=== PATIENT | male | born 1960 | race Caucasian/White ===

== ENCOUNTER 2020-10-16 17:40 | Observation (INO) | payer OTHER ==
[~2020-10-16] VITALS: Ht 175.3 cm; Wt 64.8 kg
[2020-10-16] MEDS ORDERED: KETOROLAC 60 MG/2 ML VIAL. IM ONE (18:45)
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
[2020-10-16] MEDS ORDERED: fentaNYL PF VIAL 100 MCG/2 ML VIAL IV PRN (22:30)
[2020-10-16] MEDS ORDERED: ONDANSETRON PF 4 MG/2 ML VIAL. IV PRN (22:30)
[2020-10-17 02:45] VITALS: BP 135/80
[2020-10-17] MEDS ORDERED: HYDR-2759 PO (04:08)
[2020-10-17] MEDS ORDERED: MELO7.5T29 PO (04:08)
[2020-10-17 05:00] VITALS: BP 125/88
[2020-10-17 07:00] VITALS: BP 155/92
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
--- NOTE | 2020-10-17 10:38 | DISCH ---
DISCHARGE INSTRUCTIONS Condition on Discharge Condition on Discharge: Stable Activity After Discharge Activity Instructions for Disc: No restrictions, Activity as tolerated Driving Instructions after Dis: Do not drive today Diet after Discharge Diet after Discharge: Cardiac Checks after Discharge DC Comment: CBC, CMP within 1 week Follow-Up Follow up with: PCP withinm 2 weeks of discharge Follow Up With: Neurosurgery if needed MANDO JUAREZ MD Oct 17, 2020 10:38
[2020-10-17 10:43] VITALS: BP 158/84
[2020-10-17] MEDS ORDERED: HYDROcodone/APAP 7.5/325MG 1 TAB TABLET PO PRN (11:00)
--- NOTE | 2020-10-17 12:16 | NUR ---
SS following for discharge planning. SS reviewed pt chart and discussed with pt RN. Pt is from home and is currently on room air. Discharge order on the chart for home with self care.
[2020-10-17 13:48] LABS: BASO # 0.1 x10^3/uL (0.0-0.2); BASO % 1 % (0-3); EOS # 0.4 x10^3/uL (0.0-0.7); EOS % 6 % (0-3); HEMATOCRIT 48.3 % (39.0-53.0); HEMOGLOBIN 16.3 g/dL (13.0-17.5); LYMPH # 0.9 x10^3/uL (1.0-4.8); LYMPH % 13 % (24-48); MEAN CORPUSCULAR HEMOGLOBIN 31 pg (25-35); MEAN CORPUSCULAR HGB CONC 34 g/dL (31-37); MEAN CORPUSCULAR VOLUME 92 fL (79-100); MONO # 0.8 x10^3/uL (0.0-1.1); MONO % 12 % (0-9); NEUT # 4.8 x10^3/uL (1.8-7.7); NEUT % 69 % (31-73); PLATELET COUNT 217 x10^3/uL (140-400); RED BLOOD COUNT 5.22 x10^6/uL (4.30-5.70); RED CELL DISTRIBUTION WIDTH 14.6 % (11.5-14.5); WHITE BLOOD COUNT 6.9 x10^3/uL (4.0-11.0)
--- NOTE | 2020-10-17 14:00 | NUR ---
Discharge Note: HAWK RODRÍGUEZ Discharge instructions and discharge home medications reviewed with Patient and a copy given. All questions have been answered and understanding verbalized. Patient instructed to follow up with Dr. Recinos and Primary Doctor within 2 weeks. All belongings taken with patient upon discharge. Patient instructed not to drive until follow scan with Neurosurgery, patient refusing. Education provided. The following instructions and handouts were given: Subarachnoid hemorrhage Discontinued lines and drains: Peripheral IV intact. Patient discharged to Home or Self Care with Self via Wheelchair
[2020-10-17 14:11] LABS: ALBUMIN 3.8 g/dL (3.4-5.0); ALBUMIN/GLOBULIN RATIO 1.2 (1.0-1.7); CALCIUM 9.2 mg/dL (8.5-10.1); CREATININE 1.1 mg/dL (0.7-1.3); GFR 68.1; TOTAL BILIRUBIN 1.2 mg/dL (0.2-1.0); TOTAL PROTEIN 6.9 g/dL (6.4-8.2)
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
== END 2020-10-17 14:00 | disposition home or self-care (01) ==
LOC: ER 17:40 → ED HOLD 21:30 → CVICU 10-17 02:15
PROVIDERS: ADMIT Internal Medicine; ATTEND Internal Medicine
DX: S16.1XXA Strain of muscle, fascia and tendon at neck level, initial encounter (principal); S46.912A Strain of unspecified muscle, fascia and tendon at shoulder and upper arm level, left arm, initial encounter; I60.9 Nontraumatic subarachnoid hemorrhage, unspecified; F17.200 Nicotine dependence, unspecified, uncomplicated; Z98.890 Other specified postprocedural states; V89.2XXA Person injured in unspecified motor-vehicle accident, traffic, initial encounter; Y92.410 Unspecified street and highway as the place of occurrence of the external cause; Y93.89 Activity, other specified; Y99.8 Other external cause status
CPT/HCPCS: 36415; 70450; 72125; 73030; 80053; 85025; 96372; 96374; 99285; G0378; J1885; J3010; G0379

== ENCOUNTER → 2020-10-25 | Outpatient (CLI) | payer OTHER ==
[2020-10-17 10:43] VITALS: BP 158/84
[~2020-10-25] MED LIST: HYDR-2759 PO; MELO7.5T29 PO
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
== END ==
LOC: CT 13:43
PROVIDERS: ATTEND Neurological Surgery
DX: I62.9 Nontraumatic intracranial hemorrhage, unspecified (principal)
CPT/HCPCS: 70450

== ENCOUNTER → 2020-11-15 | Outpatient (CLI) | payer OTHER ==
[2020-10-17 10:43] VITALS: BP 158/84
--- NOTE | 2020-11-15 11:49 | RAD ---
EXAM: CT HEAD WITHOUT CONTRAST. HISTORY: Intracranial hemorrhage. TECHNIQUE: Computed tomography of the head was performed without intravenous contrast. One or more of the following individualized dose reduction techniques were utilized for this examination: 1. Automated exposure control. 2. Adjustment of the mA and/or kV according to patient size. 3. Use of iterative reconstruction technique. COMPARISON: 10/25/2020. FINDINGS: The focus of hyperattenuation along the posterior aspect of the right hernandez radiata has no t changed over recent examinations. Intracranial hemorrhage is not favored. The region of interest me asures 8 x 7 mm. There is no surrounding mass effect or vasogenic edema. Carranza-white differentiation is preserved elsewhere. The ventricles are normal in size and position. There is a small air-fluid level in the right maxillary sinus. There is moderate mucosal thickening t hroughout the ethmoid air cells. The orbits are unremarkable. The temporal bones are unremarkable. Th e calvarium reveals no suspicious lesions. There are atherosclerotic calcifications of the internal c arotid arteries. IMPRESSION: 1. No change in an 8 mm hyperattenuating region in the right posterior hernandez radiata. This is not co nsistent with hemorrhage given stability. MRI with and without contrast is recommended to exclude a m ass if long-term stability is not already known. 2. Acute on chronic right maxillary and bilateral ethmoid sinus disease. Electronically signed by: Tricia Lopez MD (11/15/2020 11:47 AM) [id number]
== END ==
LOC: CT 11:34
PROVIDERS: ATTEND Neurological Surgery
DX: S06.360A Traumatic hemorrhage of cerebrum, unspecified, without loss of consciousness, initial encounter (principal); X58.XXXA Exposure to other specified factors, initial encounter; Y93.89 Activity, other specified; Y92.89 Other specified places as the place of occurrence of the external cause; Y99.8 Other external cause status
CPT/HCPCS: 70450

== ENCOUNTER → 2020-11-21 | Outpatient (CLI) | payer MEDICARE, OTHER ==
[~2020-11-21] MED LIST changes: +GADOTERATE 7.5 MMOL/15ML VIAL. IVP ONE
--- NOTE | 2020-11-21 12:28 | RAD ---
EXAMINATION: Magnetic resonance imaging (MRI) of the brain and brainstem without and with contrast 11/21/2020 9:45 AM HISTORY: Brain mass TECHNIQUE: Multiplanar multi-weighted MRI of the brain and brainstem was performed without and with i ntravenous contrast using the general brain protocol. Contrast information: 15 mL Gadolinium based contrast COMPARISON: CT head 11/15/2020 FINDINGS: The scalp and calvarium are normal. The superior sagittal sinus demonstrates normal venous flow. The corpus callosum is normal in shape and signal intensity. The posterior fossa is unremarkable. The p ituitary and sella are normal. The brainstem and craniocervical junction are unremarkable. 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 There is susceptibility artifact in this cara on which could reflect prior hemorrhage or associated cavernoma. There is a tiny left frontal develop mental venous anomaly with deep drainage. Diffusion weighted images reveal no hyperintensities to suggest acute cerebral infarction. The suscep tibility weighted sequences reveal no evidence of acute or chronic hemorrhage. The ventricles are nor mal in size and position without evidence of hydrocephalus. Mild mucosal thickening identified involving the ethmoid air cells. Small left mastoid effusion is n oted. The orbits appear normal. Normal flow voids are demonstrated in the carotid arteries and basil ar artery. IMPRESSION: High attenuation area in the right parietal vertex on prior head CT corresponds to a moderate-sized d evelopmental venous anomaly with susceptibility artifact which could reflect sequela of remote hemorr zackary versus associated cavernoma. Electronically signed by: Yulia Arriaga MD (11/21/2020 12:26 PM) [id number]
== END ==
LOC: MRI 11:20
PROVIDERS: ATTEND Neurological Surgery
DX: G93.9 Disorder of brain, unspecified (principal)
CPT/HCPCS: 70553; A9575